=== PATIENT | female | born 1955 | race Caucasian/White ===

== ENCOUNTER 2017-06-15 16:11 | Emergency (ER) | payer BC ==
[~2017-06-15] VITALS: Ht 157.5 cm; Wt 72.6 kg
[2017-06-15] MEDS ORDERED: SIMVASTATIN40 MG PO (16:20)
[2017-06-15] MEDS ORDERED: VALACYCLOVIR500 MG PO (16:21)
[2017-06-15] MEDS ORDERED: MEDROL4 MG PO (16:38)
== END 2017-06-15 17:17 | disposition home or self-care (01) ==
LOC: ED 16:11
DX: T63.441A Toxic effect of venom of bees, accidental (unintentional), initial encounter (principal); E78.00 Pure hypercholesterolemia, unspecified; Z88.0 Allergy status to penicillin; Z90.710 Acquired absence of both cervix and uterus; Z90.49 Acquired absence of other specified parts of digestive tract; Z79.899 Other long term (current) drug therapy
CPT/HCPCS: 96372; 99283; J1100